=== PATIENT | female | born 1995 | race Caucasian/White ===

== ENCOUNTER 2016-07-08 15:32 | Inpatient (IN) | payer OTHER ==
[2016-07-08] VITALS (8 sets, daily range): BP systolic 112–130; BP diastolic 68–102; PULSE 60–98; RESP 16–23; O2SAT 95–99
[~2016-07-08] VITALS: Ht 160 cm; Wt 60.8 kg
[~2016-07-08 15:32] MED LIST: NORE1TAB63 PO
[2016-07-08] MEDS ORDERED: CeFAZolin Inj 2 GM in IV Premix 1 EACH IV ONE (15:55)
[2016-07-08] MEDS ORDERED: metroNIDAZOLE Inj 500 MG in IV Premix 1 EACH IV ONE (15:55)
[2016-07-08] MEDS ORDERED: Lactated Ringer's 1,000 ML IV ONE (16:02)
[2016-07-08] MEDS ORDERED: levoFLOXacin Inj 500 MG in IV Premix 1 EACH IV ONE (16:20)
[2016-07-08] MEDS ORDERED: metroNIDAZOLE 500 mg/100 mL NS Premix IV ONE (16:33)
[2016-07-08] MEDS ORDERED: levoFLOXacin 500 mg/100 mL D5W Premix IV ONE (16:33)
--- NOTE | 2016-07-08 16:33 | PCM.HPSURG ---
Subjective Date of Service: July 08, 2016 Referring Provider: Admitting Physician: Primary Care Physician: Maco Marin Attending Physician: Perry Moreira MD Chief Complaint appendicitis History of Present Illness Ms. Krishna is a 21-year-old female with no significant past medical or surgical history who was seen in urgent care yesterday and today secondary to right lower quadrant pain. This last Friday night (07/05/2016) patient had a sudden sharp onset of right lower quadrant pain reported to be 5 out of 10 which radiated to the left lower quadrant. This pain worsened over the next 3 days. She states it felt like someone was "twisting my colon". This was accompanied with nausea and vomiting, stating that approximately every 2 hours she would vomit until Friday where her vomiting would decrease to every 4 hours. She also states she had diarrhea Friday though does not report a bowel movement yesterday though she is still passing flatus and belching. She does not state fevers at home but states she has had some chills. States nothing like this is ever happened to her before there are no other sick contacts at home. She went to the urgent care yesterday and was told that she had a virus and was given Zofran with some relief, though she returned to urgent care today secondary to worsening of her abdominal pain. Blood work was obtained and showed a white count of 22,000. She also had a reported temperature of approximately 100F and CT imaging obtained was suggestive for acute appendicitis. Review of systems found to be negative except as above in the history of present illness. Allergy Allergies: Coded Allergies: Penicillins (Verified Allergy, Severe, Anaphylaxis, 07/08/16) Medications Home medications Active meds per [facility] med rec: Microgestin, contraceptive Ondansetron Levsin (hyoscyamine), anti-spasmatic Past Surgical History Operations: [place] teeth removal Social History Occupation: veterinary surgery technician Hx Alcohol Use: No Hx Substance Use: No Hx Tobacco Use: Yes (occasional) PMH Other History Diabetes: No Other History/Comments Patient local resident, works as a veterinary surgery technician. Currently gauged to peter also present during interview. No children. Her next general records past medical history includes right-sided sciatica, allergic conjunctivitis, sinusitis, contusion of coccyx, orthostatic lightheadedness Social History Hx Alcohol Use: NoHx Substance Use: NoHx Tobacco Use: Yes (occasional smoker) Family History Family History: Father hypertension and prediabetes, mother unknown, sister and brother alive and well H&P Surgical Exam Exam General: Alert, Oriented X3, Cooperative Neck: Full Range of Motion Lungs: Clear to Auscultation, Clear to Percussion, Normal Air Movement Heart: Exam Unremarkable, Regular Rate/Rhythm, No Murmurs/Rubs/Gallops Abdomen: Soft, Appropriately tender (right lower quadrant and suprapubic tenderness to palpation, no rebound tenderness) Diagnostics: . CT ABDOMEN AND PELVIS WITH CONTRAST IMPRESSION: 1. The CT findings are suspicious for acute appendicitis. Dictated by: Pascual Austin M.D. on 07/08/2016 at 14:53 Assessment & Plan Assessment Assessment & Plan: Acute Appendicitis - CT imaging shows distended appendix 9 mm in diameter. With increased enhancement and small amount of free fluid - WBC found to be 22,000 at urgent care -Temperature at urgent care 99.9, 36.6 preoperative - Patient scheduled for laparoscopic appendectomy today - Antibiotics given to date include: levofloxacin, metronidazole ceftezole - IV fluids, 1LR given to date VTE Prophylaxis: SCDs Resuscitation Status: CPR: Attempt Resuscitation Attending Statement: I personally interviewed and examined the pt, and I agree with Dr. Velazco's assessment and plan. To OR today. ILIANA VELAZCO DO July 08, 2016 16:33 Perry Moreira MD July 14, 2016 16:21
--- NOTE | 2016-07-08 18:19 | PCM.HPANE ---
Patient Data Surgeon Admitting Provider: Attending Provider:Perry Moreira MD Primary Care Physician:Maco Marin Other Provider:Radha Moraesingham Anesthesia Reason for Visit Appendicitis Ht/WT & BMI Height (Feet): 5 Height (Inches): 3 Weight (Kilograms): 57.3 Body Mass Index 22.00 Allergies Coded Allergies: Penicillins (Verified Allergy, Severe, Anaphylaxis, 07/08/16) Past Anesthesia History Anesthesia History: Denies:: Abnormal Airway, Anesthesia Reactions, Difficult Intubation, Fam Anesthesia Reaction, Fam Malignant Hypertherm, Malignant Hyperthermia Diabetes History Hx Diabetes?: No Medications Home Meds Incl Beta Kenneth: No Reported Medications Norethindrone A-E Estradiol (Microgestin)1 Each Tablet1 Each PO DAILY 08/18/14 History History of ENT Problems?: Yes HEENT History: Denies:: Abnormal Airway Cataracts Difficult Intubation Dysphagia Glaucoma Hearing Problem Sinus Problem TMJ Denture Type: None Teeth Condition: Within Normal Limits Other HEENT Pertinent History: history frequent ear infections Hx of Heart Problems?: Yes Cardiovascular History: Denies:: AICD Abdominal Aortic Aneurism Atrial Fibrillation Cardiac Surgery Chest Pain Congestive Heart Failure Coronary Artery Disease Edema Heart Murmur Hypertension Irregular Heartbeat Pacemaker Peripheral Vascular Rheumatic Fever Thrombophlebitis Valvular Heart Disease Other Cardiac History: says she was in hospital 2 years ago for palpitations Hx of Respiratory Problem?: No Respiratory History: Denies:: Asthma COPD Chest Surgery Cough Dyspnea Emphysema Hemoptysis Oxygen Administration Pneumonia Pulmonary Embolism Tuberculosis Use of C-PAP Machine Use of Inhalers / NEBS Hx Neurologic Problems?: No Hx of GI Problems?: No Hx of Problems?: No HX of Peritoneal Dialysis: No Skin History: Denies:: History Skin Disorders? Hx Musculoskeletal Problems?: No Hx of Psycho/Social Problems?: Yes Psycho Social History: Positive for:: Anxiety Hx Surgeries?: No Hx Any Other Health Problems?: No Hx Diabetes: No Occupation: marine services technician Hx Alcohol Use: Yes (occasional)Hx Substance Use: Yes (marijuana)Have You Smoked inLast 12 mo: No Stop/Bang S-Snoring: Do You Snore Loudly: No T-Tired: feel tired, fatigued: Yes O-Obsered: Observed not breath: No P-Blood Pressure: treated: No B- Body Mass Index > 35 kg/m2: No A- Age over 50: No N- Neck Large Circumference: No Risk Assessment Category Category 1A: Patient has history of documented sleep apnea, and HAS NOT received any narcotic, sedative or anesthesia administration during this stay. Category 1B: Patient has history of documented sleep apnea, and HAS received any narcotic , sedative or anesthesia administration during this stay Category 2: Patient has SUSPECTED Obstructive Sleep Apnea, and HAS received any narcotic , sedative or anesthesia administration during this stay. Category 3: Patient has SUSPECTED Obstructive Sleep Apnea and HAS NOT received narcotic, sedative or anesthesia administration during this stay. Category 4: Outpatient in Procedural Areas with known sleep apnea or who screen positive for High Risk via the STOP/BANG questionnaire. Exam Exam Vital Signs Vital Signs Date Time Temp Pulse Resp B/P Pulse Ox O2 Delivery O2 Flow Rate FiO2 07/08/16 16:06 36.6 93 16 114/74 99 Room Air General Appearance: Alert, Oriented X3, Cooperative, No Acute Distress HEENT/AIRWAY: MP 1 Lungs: Clear to Auscultation, Clear to Percussion, Normal Air Movement Heart: Exam Unremarkable, Regular Rate/Rhythm, No Murmurs/Rubs/Gallops Meds/Labs/Diagnostics Admission Meds Current Medications Lactated Ringer's (Lr) 1,000 ml @ ud STK-MED ONCE IV Last administered on 07/08t 16:02; Start 07/08/16 at 16:02; Stop 07/08/16 at 16:03; Status DC Plan Impression Patient chart reviewed, patient interviewed and anesthestic plan with risks, benefits, and alternatives discussed, and informed consent obtained. ASA Physical Status: ASA2 Mod Systemic Disease Anesthetic Plan: GA Bene/Risks/Altern/Consents: Yes HP Complete Prior to Induction: Yes Cuong Morgan MD July 08, 2016 18:19
[2016-07-08] MEDS ORDERED: Lactated Ringer's 1,000 ML IV SCH (18:34)
[2016-07-08] MEDS ORDERED: Lactated Ringer's 500 ML IV PRN (18:34)
[2016-07-08] MEDS ORDERED: Dexamethasone 4 mg/mL Inj IVPUSH PRN (18:35)
[2016-07-08] MEDS ORDERED: HYDROmorphone 1 mg/mL Inj IVPUSH PRN (18:35)
[2016-07-08] MEDS ORDERED: Ondansetron 2 mg/mL 2 mL Inj IVPUSH PRN (18:35)
[2016-07-08] MEDS ORDERED: MetoCLOpramide 5 mg/mL 2 mL Inj IVPUSH PRN (18:35)
[2016-07-08] MEDS ORDERED: Phenylephrine 10,000 mCg/mL Inj IVPUSH PRN (18:35)
[2016-07-08] MEDS ORDERED: EPHEDrine Sulfate 50 mg/mL Inj IVPUSH PRN (18:35)
[2016-07-08] MEDS ORDERED: Bupivacaine 0.5%/EPI 50 mL Inj INFILTRATE ONE (18:48)
[2016-07-08] MEDS ORDERED: Sodium Chloride LOK Flush 10 mL Syringe IVFLUSH PRN (19:15)
--- NOTE | 2016-07-08 19:32 | PCM.ANEP1 ---
Post Anesthesia Phase 1 PACU Phase 1 Assessment Date of Service: July 08, 2016 Vital Signs Vital Signs Date Time Temp Pulse Resp B/P Pulse Ox O2 Delivery O2 Flow Rate FiO2 07/08/16 16:06 36.6 93 16 114/74 99 Room Air Anesthetic Administered: GA Level of Alertness: Awake, talking ORTIZ's with Equal Strength: Yes Pain: No Nausea or Vomiting: No Oxygen Delivery: Room Air Lungs: Clear to Auscultation, Clear to Percussion, Normal Air Movement Dermatome Level: Full Sensation Complications: No Cuong Morgan MD July 08, 2016 19:32
[2016-07-08] MEDS ORDERED: Dexamethasone 4 mg/mL Inj ONE (19:52)
[2016-07-08] MEDS ORDERED: Propofol 10,000 mCg/mL 20 mL Inj ONE (19:52)
[2016-07-08] MEDS ORDERED: fentaNYL-PF 50 mCg/mL 2 mL Inj ONE (19:52)
[2016-07-08] MEDS ORDERED: Glycopyrrolate 0.2 MG/ML 1mL Inj ONE (19:52)
[2016-07-08] MEDS ORDERED: Succinylcholine Chloride 20 mg/mL 5 mL Inj ONE (19:52)
[2016-07-08] MEDS ORDERED: Phenylephrine/NS 100 mCg/mL 10 mL Syringe IVPUSH ONE (19:52)
[2016-07-08] MEDS ORDERED: Ondansetron 2 mg/mL 2 mL Inj ONE (19:52)
[2016-07-08] MEDS ORDERED: MetoCLOpramide 5 mg/mL 2 mL Inj ONE (19:52)
[2016-07-08] MEDS ORDERED: Neostigmine 1 mg/mL 10 mL Inj ONE (19:52)
[2016-07-08] MEDS ORDERED: Rocuronium 10 mg/mL 5 mL Inj ONE (19:52)
[2016-07-08] MEDS: fentaNYL-PF 50 mCg/mL 2 mL Inj IVPUSH PRN ×2 (20:14→20:17)
[2016-07-08] MEDS: HYDROmorphone 1 mg/mL Inj IVPUSH PRN (21:51)
[2016-07-08] MEDS: Ondansetron 2 mg/mL 2 mL Inj IVPUSH PRN (21:52)
[2016-07-09] MEDS: HYDROmorphone 1 mg/mL Inj IVPUSH PRN ×3 (00:35→18:16)
--- NOTE | 2016-07-09 00:38 | OP ---
[address] [address] OPERATIVE REPORT PATIENT: TSERING CHACKO : 1995 MR#: [id number] ADMIT: 07/08/2016 JOB ID: [id number] DATE OF SURGERY: 07/08/2016 SURGEON: Perry Moreira MD. ASH COLLECTOR: RAMIRO Becerra. ANESTHESIA: General. PREOPERATIVE DIAGNOSIS(ES): Acute appendicitis. POSTOPERATIVE DIAGNOSIS(ES): Perforated appendicitis. PRINCIPAL PROCEDURE: Laparoscopic appendectomy. INDICATION FOR PROCEDURE: The patient is a 21-year-old female with three days history of abdominal pain, an elevated white blood count and a CT scan that was suspicious for acute appendicitis. PRINCIPAL FINDING: The appendix had fibrinous exudate on it and it was completely encased and covered up by the retroperitoneum and the cecum. There was no gross purulence except for the localized inflammatory process just around the appendix. There was oozing of purulence from the appendix during the case. PROCEDURE COURSE: The patient was brought to the operating table and was provided with general anesthesia. The patient was given IV antibiotics and SCDs. A time-out was performed. The patient's abdomen was then prepped and draped in the usual sterile fashion. Next, local anesthetic was injected into the left upper quadrant location and a 5 mm stab incision was made. A Veress needle was used to establish pneumoperitoneum. Next, a 5 mm trocar was then placed and the laparoscope was introduced. A second 5 mm trocar was then placed in the left lateral abdomen and a 12 mm trocar was then placed in the left lower quadrant. The patient was tilted with left side down and head down. Inspection of the right lower quadrant shows that there was an indurated process just behind the cecum. I was able to medially rotate the cecum and I was able to find a walled-off inflammatory process surrounding the appendix. There was oozing of purulent material from the appendix itself during the case. There were fibrinous exudate on the appendix itself and also on the retroperitoneum. Next, a window was then made in the mesoappendix adjacent to the base of the appendix and using an endoscopic stapler the base of the appendix was then transected. The mesoappendix was also divided using the stapler. The specimen was then placed into the EndoCatch bag and removed from the patient. Copious irrigation of the right lower quadrant and of the staple line was carried out. Cautery was gently applied to the staple line to help with hemostasis. Irrigation of the right upper quadrant was carried out. Given the perforated nature of the appendicitis, a decision was placed to place a drain. A 19-Korean Yariel-Leiva drain was then introduced through the left lateral port and placed into the pelvis. It was secured to the skin using a nylon suture. Next, we turned our attention to the left lower quadrant trocar site. The fascial defect there was then reapproximated using 0 Vicryl suture using the Endo Close device. Next, CO2 was allowed to escape and all the trocars were then removed from the patient. The SHAYAN was connected to a bulb suction device. Steri-Strips and sterile dressing were then placed over each wound. By the end of procedure, needle counts and sponge counts were correct. The patient was then extubated and taken to the recovery room in stable satisfactory condition. The assistance from surgical PA or RAMIRO was critical in driving the camera and in completion of the case. NANCY
[2016-07-09 01:20] VITALS: BP 99/57; PULSE 63; RESP 16; O2SAT 97
[2016-07-09] MEDS: metroNIDAZOLE Inj 500 MG in IV Premix 1 EACH IV SCH ×3 (01:33→16:34)
[2016-07-09 05:50] LABS: Mean Corpuscular Volume 88.7 fL (81-100)
--- NOTE | 2016-07-09 06:06 | NUR ---
Transfer to unit Patient arrived to unit at 202907/08/16, able to transfer (scoot) self to bed from [facility]. Oriented to room, and call light. Patient c/o pain and nausea. Unable to scan wrist ban verbally verified patient and medications. Pharmacy notified. New wrist band brought up shortly after. Ambulates to bathroom with steady gait, voiding spontaneously. Tolerating clear liquid diet, no noted ASE to ABX. Will continue to monitor.
[2016-07-09 06:21] VITALS: BP 108/68; PULSE 63; RESP 16; O2SAT 99
--- NOTE | 2016-07-09 08:34 | PCM.PNSURG ---
Subjective Visit Information: Reason for Visit Appendicitis Surgery/Surgery Date LAP APPENDECTOMY 07/08/16 Post-Op Day # Date of Admission: July 08, 2016 at 19:51 Hospital Day # Subjective: no acute events overnight, feels better today, no n/v, operative findings explained to pt. Objective Objective Arousable in bed Abd: nondistended, less tender in RLQ than yesterday, SHAYAN --> serosang 20 cc Vital Sign- Last 8 Hours Date Time Temp Pulse Resp B/P Pulse Ox O2 Delivery O2 Flow Rate FiO2 07/09/16 06:21 36.3 63 16 108/68 99 Room Air 07/09/16 01:20 36.2 63 16 99/57 97 Room Air Intake and Output- Last 8 Hour 07/09/16 Cumulative From/Thru 07:00 07/08/16 16:06 - 07/09/16 06:31 Intake Total 392 ml 1442 ml Output Total 1470 ml 1470 ml Balance -1078 ml -28 ml Intake Oral 250 ml 250 ml IV Total 142 ml 1192 ml Output Urine Total 1450 ml 1450 ml Drainage Total 20 ml 20 ml # Bowel Movements 0 0 Result Diagram: 07/09/16 0448 Assessment & Plan Impression POD #1 s/p lap appy for perf appendicitis Doing well Problems: Plan Continue IV abx Will repeat CBC tomorrow Ambulate Incentive spirometer Advance diet as tolerated Continue SHAYAN for now, likely d/c SHAYAN prior to going home. VTE Prophylaxis: SCDs Resuscitation Status: CPR: Attempt Resuscitation Perry Moreira MD July 09, 2016 08:34
[2016-07-09] MEDS: HYDROcodone-APAP 5-325 mg Tablet PO PRN ×4 (08:57→21:25)
[2016-07-09] MEDS: levoFLOXacin Inj 500 MG in IV Premix 1 EACH IV SCH (09:57)
--- NOTE | 2016-07-09 10:34 | NUR ---
Social Work: Screening/Readiness for Discharge D: EMR reviewed. Pt is a 21 y/o female admitted for appendicitis pre H&P. SW met with pt to complete initial screening. Pt was alert and oriented x3. SW confirmed that pt has self-pay insurance. SW made T/C to Registration to determine in pt is covered by Medicaid at pt's request. Registration confirmed pt is ineligible/inactive for Medicaid. SW made referral to [facility] and provided pt with [facility] Application. Pt's PCP is Maco Marin MD. Pt's primary contact is her mother, Alana Krishna ([phone]). SW confirmed pt has not completed DPOA/advanced directive ppw. SW provided ppw at pt's request and encouraged pt to provide copy to the hospital when complete. Pt lives at home with her Fiance in [place]. SW does not anticipate any discharge needs at this time. Pt to transport home with her mother via POV at time of discharge. SW will continue to follow if needs arise. A: Pt who is independent at baseline. P: Pt to discharge home with mother via POV when medically stable. CASANDRA Quiroz
[2016-07-09 13:31] VITALS: BP 118/77; PULSE 57; RESP 16; O2SAT 98
[2016-07-09] MEDS: Ondansetron 2 mg/mL 2 mL Inj IVPUSH PRN ×2 (17:37→18:06)
--- NOTE | 2016-07-09 18:36 | NUR ---
Pain / Nausea Pain well controlled most of day with 2 tabs Vicodin Q4. This evening pt seems very nauseous and asks for Zofran. 8mg given with some relief. 0.5mg Dilaudid given IV to help with pain. Withheld PO medications worried they would make her more nauseous. Will recheck soon. Pt ambulating independently with steady gait. Care continues
[2016-07-09 20:33] VITALS: BP 115/75; PULSE 69; RESP 14; O2SAT 96
--- NOTE | 2016-07-09 20:55 | NUR ---
BM P: Patient has not had BM since 07/06 I: Encouraged ambulation and fluids. E: Patient able to do multiple laps around unit and patient stated that she has passed gas. S:Bed down and locked, call light in reach pt will call if needed.
[2016-07-09] MEDS: Senna-Docusate 8.6-50 mg Tablet PO PRN (22:29)
--- NOTE | 2016-07-09 23:20 | NUR ---
PAIN/ACTIVITY: Pt. reported post op pain, medicated with 2 [place]. Educated regarding constipation due to pain medication. Gave 2 Sennas and prune juice. Encouraged ambulation. Pt. has been ambulating around the hallway multiple times tonight. States she is starting to pass flatus during ambulation. BT are present throughout, no report of BM yet. Abdominal band aids are CDI. A & O, VSS, on going care.
[2016-07-10 00:09] VITALS: BP 118/71; PULSE 57; RESP 16; O2SAT 98
[2016-07-10] MEDS: Ondansetron 2 mg/mL 2 mL Inj IVPUSH PRN ×3 (00:31→16:33)
[2016-07-10] MEDS: metroNIDAZOLE Inj 500 MG in IV Premix 1 EACH IV SCH ×3 (00:34→16:33)
[2016-07-10] MEDS: HYDROcodone-APAP 5-325 mg Tablet PO PRN ×3 (02:23→14:28)
[2016-07-10 05:29] VITALS: BP 110/76; PULSE 67; RESP 18; O2SAT 99
[2016-07-10 06:08] LABS: BASOPHILS % (AUTO) 0.2 % (0-3); MONOCYTES % (AUTO) 8.3 % (4-12); Mean Corpuscular Hemoglobin 30.4 pg (27.0-35.0); Mean Corpuscular Volume 89.9 fL (81-100); NEUTROPHILS % (AUTO) 67.6 % (40-74); Platelet Count 262 bil/L (150-400)
[2016-07-10] MEDS: Senna-Docusate 8.6-50 mg Tablet PO PRN (08:35)
[2016-07-10] MEDS: levoFLOXacin Inj 500 MG in IV Premix 1 EACH IV SCH (09:57)
--- NOTE | 2016-07-10 10:22 | PCM.PNSURG ---
Subjective Date of Service: July 10, 2016 Date of Service: July 10, 2016 Visit Information: Reason for Visit Appendicitis Surgery/Surgery Date LAP APPENDECTOMY 07/08/16 Post-Op Day # 2 s/p lap appy Date of Admission: July 08, 2016 at 19:51 Hospital Day # Subjective: Patient seen on surgery floor. States that she feels better today but still notes some pain major at drain site. Denies f/c/cp/sob. Notes improved appetite today with decreased nausea and no vomiting. No BM but positive flatus. Postop General: No Shortness of Breath, No Chest Pain Gastrointestinal: Tolerating Oral Feedings, No N/V, Passing Flatus Pain Management: PO (Aurora, ), IV Push (dilaudid, morphine), Continued Pain Issues (slow improvement) Postop Activity: Ambulating Independently Objective Vital Sign- Last 8 Hours Date Time Temp Pulse Resp B/P Pulse Ox O2 Delivery O2 Flow Rate FiO2 07/10/16 05:29 36.7 67 18 110/76 99 Room Air Intake and Output- Last 8 Hour 07/10/16 Cumulative From/Thru 07:00 07/08/16 16:06 - 07/10/16 05:29 Intake Total 600 ml 3742 ml Output Total 950 ml 3740 ml Balance -350 ml 2 ml Intake Oral 600 ml 2250 ml IV Total 1492 ml Output Urine Total 950 ml 3700 ml Drainage Total 40 ml # Bowel Movements 0 0 General: Alert, Oriented X3 Neck: Supple Lungs: Clear to Auscultation Heart: Exam Unremarkable, Regular Rate/Rhythm Abdomen: Soft, Appropriately tender, Non-distended Catheters: None Result Diagram: 07/10/16 0535 Assessment & Plan Impression satisfactory post op course s/p lap appy for perforated appendicitis Problems: Plan Patient would like to remain in hospital a few hours to see if she feels like going home. Will likely d/c to home this pm. Will dc drain at that time. In the interim patient needs to ambulate and continue IS. Continue Senna. Pain Management: Continue norco and dilaudid for breakthrough. VTE Prophylaxis: SCDs Resuscitation Status: CPR: Attempt Resuscitation Qamar Bergman PA-C July 10, 2016 10:22
--- NOTE | 2016-07-10 10:32 | PCM.DISURG ---
Surgical Discharge Instruction Date of Service July 10, 2016 Dates of Hospitalization Date of Hospital Admission July 08, 2016 at 19:51 Providers Admitting Physician: Perry Moreira MD Primary Care Physician: Maco Marin Attending Physician: Perry Moreira MD Discharge Diagnosis Discharge Diagnosis Appendicitis Post Operative diagnosis Appendicitis Diet Discharge Diet: No restrictions Activity Discharge Activity-General: Balance rest and activity, No driving while taking narcotic Dressing and Incisional Care Dressing Care: Allow Steri Stripes to fall off, Remove outer dressing after 24 hrs Hygiene: May shower, DO NOT soak incision under water, NO bathtub, hot tub or whirlpool Follow Up Plan Follow Up Plan Follow up in general surgery PA clinic in 2-3 weeks. Check in with your primary care provider as well. Follow-up Provider (F9): Maco Marin Mid-level Provider (F9): Amira Angeles PAC Call your provider for: Fever, Chills, Increasing abdominal pain, Nausea, Wound redness, Increasing wound pain, Discharge @ incision, pus discharge Qamar Bergman PA-C July 10, 2016 10:32
[2016-07-10] MEDS ORDERED: HYDR-4003 PO (10:34)
[2016-07-10] MEDS ORDERED: METR500T19 PO (14:08)
[2016-07-10] MEDS ORDERED: LEVO500T16 PO (14:10)
[2016-07-10 14:18] VITALS: BP 113/69; PULSE 73; RESP 18; O2SAT 96
[2016-07-10] MEDS ORDERED: ONDA4TAB9 PO (14:22)
--- NOTE | 2016-07-10 15:10 | NUR ---
Social work-discharge: Data:EMR reviewed. Pt is on day 2 of hospitalization for appendicitis per H&P. Pt is medically stable to discharge home today. [facility] care application has been provided. Pt has been up ambulating independently. Pt's mother to provide transport home. No discharge needs identified. All updated and agreeable to plan. Assessment;Pt who is independent at baseline. Plan:Pt to discharge home today via POV. No discharge needs identified. All updated and agreeable to plan. CASANDRA Hunt
--- NOTE | 2016-07-10 16:15 | PATH ---
SURGICAL PATHOLOGY Attending Physician:Perry Moreira M.D. CASE STATUS: Signed Out PATIENT NAME: TSERING CHACKO PID: [id number] : 1995 DATE COLLECTED:07/08/2016 00:00 SPECIMEN: Appendix CLINICAL HISTORY: APPENDICITIS 1). APPENDIX FINAL DIAGNOSIS: Appendix, Laparoscopic Appendectomy: Acute and focally gangrenous appendicitis with serositis and para-appendiceal abscess. ICD10: K35.2 GROSS DESCRIPTION: The specimen is received in formalin, labeled with the patient's name, sublabeled as appendix, and consists of an intact appendix (length-5.1 cm, diameter-0.6 cm) with attached mesoappendix (up to 1.2 and cm in depth). The resection margin is received stapled. The serosa is vargas smooth and shiny and partially covered in vargas flaky friable exudate. The lumen contains dark red-black solid firm material. The wall is up to 0.2 cm thick. No nodules, masses or lesions are identified. Ink code: black-proximal. Section code: (A) appendix, underwriting sales representative. 07/09/16 ICD-9 CODES: CPT CODES: 1: 66283 Electronically Signed Out Edilia Goodman MD [facility] [address], [place] [address] Technical component performed at [facility], [facility] [address], [place], [address]
--- NOTE | 2016-07-10 18:52 | NUR ---
Discharge Patient left unit at 1845 ambulating independently with mom. All instructions regarding medications and dressing/incision care were given. Patient stated she understood instructions. All belongings with patient.
--- NOTE | 2016-07-12 13:53 | PCM.DC.SUR ---
Discharge Summary Date of Service: July 12, 2016 Date of Hospital Admission: July 08, 2016 at 19:51 Date of Operation(s): July 08, 2016 Date of Discharge: July 10, 2016 Diagnosis at Time of Discharge Appendicitis Problems: Operation Laparoscopic appendectomy Brief History and Physical: Ms. Krishna is a 21-year-old female with no significant past medical or surgical history who was seen in urgent care yesterday and today secondary to right lower quadrant pain. This last Friday night (07/05/2016) patient had a sudden sharp onset of right lower quadrant pain reported to be 5 out of 10 which radiated to the left lower quadrant. This pain worsened over the next 3 days. She states it felt like someone was "twisting my colon". This was accompanied with nausea and vomiting, stating that approximately every 2 hours she would vomit until Friday where her vomiting would decrease to every 4 hours. She also states she had diarrhea Friday though does not report a bowel movement yesterday though she is still passing flatus and belching. She does not state fevers at home but states she has had some chills. States nothing like this is ever happened to her before there are no other sick contacts at home. She went to the urgent care yesterday and was told that she had a virus and was given Zofran with some relief, though she returned to urgent care today secondary to worsening of her abdominal pain. Blood work was obtained and showed a white count of 22,000. She also had a reported temperature of approximately 100F and CT imaging obtained was suggestive for acute appendicitis. Review of systems found to be negative except as above in the history of present illness. Consultants: None Hospital Course: The patient was seen in the ED and found to have evidence of appendicitis. She was then taken to the operating room for a laparoscopic appendectomy. Please see operative notes for details of the operation. She tolerated the procedure well and was transferred to her hospital room where she remained for the balance of her hospital stay. A walled-off inflammatory process surrounding the appendix along with oozing of purulent material from the appendix itself was found along with fibrinous exudate on the appendix itself and also on the retroperitoneum. A abdominal drain was therefore placed and was removed on postoperative day #2. Antibiotics were started by IV in the hospital and converted to oral at time of discharge. On postoperative day number 2, the patient was found to have tolerable pain control, ambulating, passing flatus and tolerating a diet without nausea. She was then discharged to home in good condition. Pathology: CLINICAL HISTORY: APPENDICITIS 1). APPENDIX FINAL DIAGNOSIS: Appendix, Laparoscopic Appendectomy: Acute and focally gangrenous appendicitis with serositis and para-appendiceal abscess. Disposition: Home in good condition Follow-up Plan: Follow up in 2 weeks with general surgery [facility] Hydrocodone-Acetaminophen 5-325 mg (Hydrocodone-Acetaminophen 5-325 mg) 1 Each Tablet 1 TABLET PO Q4H PRN PRN For Pain Levofloxacin (Levaquin) 500 Mg Tablet 500 MG PO DAILY Metronidazole (Metronidazole) 500 Mg Tablet 500 MG PO TID Norethindrone A-E Estradiol (Microgestin) 1 Each Tablet 1 EACH PO DAILY ( Reported) Ondansetron ODT (Zofran ODT) 4 Mg Tablet 4 MG PO Q4H PRN PRN For Nausea copies to: Maco Marin Samuel L PA-C July 12, 2016 13:53
== END 2016-07-10 18:45 | disposition home or self-care (01) | DRG 340 ==
LOC: SAS 15:32 → OSC 19:51
PROVIDERS: ADMIT Surgery; ATTEND Surgery
PROC: 0DTJ4ZZ Resection of Appendix, Percutaneous Endoscopic Approach (ICD-10-PCS; principal; 2016-07-09)
DX: K35.2 Acute appendicitis with generalized peritonitis (principal); F17.200 Nicotine dependence, unspecified, uncomplicated

== ENCOUNTER 2016-07-08 15:53 | Day surgery (SDC) | payer OTHER ==
[2016-07-08] MEDS ORDERED: Lactated Ringer's 500 ML IV PRN (20:08)
[2016-07-08] MEDS ORDERED: Lactated Ringer's 1,000 ML IV SCH (20:08)
[2016-07-08] MEDS ORDERED: HYDROmorphone 1 mg/mL Inj IVPUSH PRN (20:10)
[2016-07-08] MEDS ORDERED: Dexamethasone 4 mg/mL Inj IVPUSH PRN (20:10)
[2016-07-08] MEDS ORDERED: fentaNYL-PF 50 mCg/mL 2 mL Inj IVPUSH PRN (20:10)
[2016-07-08] MEDS ORDERED: Ondansetron 2 mg/mL 2 mL Inj IVPUSH PRN (20:10)
[2016-07-08] MEDS ORDERED: MetoCLOpramide 5 mg/mL 2 mL Inj IVPUSH PRN (20:10)
== END 2016-07-08 23:59 | disposition home or self-care (01) ==
LOC: SAS 15:53
PROVIDERS: ATTEND Surgery
DX: K35.80 Unspecified acute appendicitis (principal)

== ENCOUNTER 2016-07-13 09:43 | Emergency (ER) | payer OTHER ==
[~2016-07-13 09:43] MED LIST changes: +HYDR-4003 PO; +LEVO500T16 PO; +METR500T19 PO; +ONDA4TAB9 PO
[2016-07-13 10:00] VITALS: BP 128/86; PULSE 63; RESP 14; O2SAT 95
--- NOTE | 2016-07-13 10:39 | ED.REPORT ---
HPI-Abd Pain F Under 40 Date of Service July 13, 2016 ED Provider: Jacques Calderon MD The patient is a 21 year old female who presents to the ED accompanied by a friend due to increasingly severe nausea for the past 3 days. The pt had an perforated appendectomy performed Friday night and was discharged Friday night on Metronidazole, Zofran, Levoflaxen, Vicodin and Tylenol. morning, she reports that she over exercised by walking around too much and didn 't get much sleep. She changed her bandage the same day and has since had a small amount of discharge coming from her wound. Associated symptoms include chills, lack of sleep, loss of appetite, and mid-abdominal pain. Since Friday, she has been increasingly nauseous but has not vomited. She has not measured a fever but has felt "overheated." Nursing Notes Stated Complaint: POST OP PAIN Chief Complaint: Female Abdominal Pain Nursing Notes Reviewed: Yes Allergies: Coded Allergies: Penicillins (Verified Allergy, Severe, Anaphylaxis, 07/08/16) Scheduled Levofloxacin (Levaquin) 500 Mg Tablet 500 MG PO DAILY Metronidazole (Metronidazole) 500 Mg Tablet 500 MG PO TID Norethindrone A-E Estradiol (Microgestin) 1 Each Tablet 1 EACH PO DAILY Scheduled PRN Hydrocodone-Acetaminophen 5-325 mg (Hydrocodone-Acetaminophen 5-325 mg) 1 Each Tablet 1 TABLET PO Q4H PRN PRN For Pain Ondansetron ODT (Zofran ODT) 4 Mg Tablet 4 MG PO Q4H PRN PRN For Nausea Ondansetron ODT (Zofran ODT) 4 Mg Tablet 4 MG PO Q4H PRN PRN For Nausea General Time Seen by MD: 10:04 Chief Complaint Nausea Hx Obtained From: Patient Arrived By: Walk-in Sudden in Onset?: Yes Symptom Duration: Since onset Progression since Onset: Gradually worsening Location: : Abdomen lower Quality: Painful Radiation: : Does not radiate Severity: Current: Mild Recent Healthcare: Recent doctor visit, Recent hospitalization, Previous surgery Similar Sx Previous: Yes Past Medical History Past Medical History none reported Past Surgical History Reports: Appendectomy Family History non-contributory Smoking History Never Smoker Social History Alcohol Use: "Social" Drug Use: Denies drug use Other Social History: Good social support, Local resident Occupation Works in farm Ambulatory Status Independent Review of Systems Review of Systems Note: Constitutional: Reports: Chills, Denies: Fever GI: Reports: Abdominal pain, Nausea, Denies: Vomiting Complete sys rev & neg: except as marked. Physical Exam Initial Vital Signs Vital Signs (First) Date Time Temp Pulse Resp B/P Pulse Ox O2 Delivery O2 Flow Rate FiO2 07/13/16 10:00 36.8 63 14 128/86 95 Room Air Initial VS: Reviewed Head / Eyes: Atraumatic, Normocephalic, PERRL ENT: Mucous membranes moist, Conjunctiva normal Neck: Supple, Non-tender Lymphatic: No lymphadenopathy Extremities: Vascular intact, Neuro intact, No swelling, No tenderness Skin: Warm, Dry Neurologic: Alert, Oriented General/Constitutional: Awake, Alert, Cooperative Respiratory / Chest: Atraumatic, Breath sounds NL, Breath sounds = bilat, No respiratory distress Cardiovascular: Heart rate NL, Regular rhythm, Heart sounds NL, No gallop, No murmurs, No rubs Abdomen: No guarding, No rebound diffuse tenderness incisions are intact no active drainage no surrounding erythema no fluctuance Back: Atraumatic, Inspection NL, Full range of motion, Painless range of motion Interpretation & Diagnostics Interpretation & Diagnostics: ABDOMINAL US IMPRESSION: Small fluid within the abdominal midline as above. This could represents moderate hematoma, phlegmon or seroma. Developing abscess cannot be definitively excluded on the basis of this examination. Dictated by: Dionne Valladares M.D. on 07/13/2016 at 11:21 Approved by: Dionne Valladares M.D. on 07/13/2016 at 11:[address] IMPRESSION: 1. No acute intra-abdominal or pelvic process. No abscess. Dictated by: Dionne Valladares M.D. on 07/13/2016 at 13:48 Approved by: Dionne Valladares M.D. on 07/13/2016 at 14:11 Lab Results Interpretation Result Diagram: 07/13/16 1055 07/13/16 1055 Test 07/13/16 10:55 07/13/16 11:15 White Blood Count 6.8th/mm3 (3.8-10.1) Red Blood Count 4.80mil/mm3 (3.90-5.20) Hemoglobin 14.4g/dL (12.0-15.6) Hematocrit 43.1% (35.0-46.0) Mean Corpuscular Volume 89.8fL (81-100) Mean Corpuscular Hemoglobin 30.0pg (27.0-35.0) Mean Corpuscular Hemoglobin Concent 33.4% (32.0-37.0) Red Cell Distribution Width 12.5% (12.3-15.4) Platelet Count 364bil/L (150-400) Neutrophils (%) (Auto) 68.4% (40-74) Lymphocytes (%) (Auto) 20.2% (14-46) Monocytes (%) (Auto) 8.7% (4-12) Eosinophils (%) (Auto) 1.9% (0-5) Basophils (%) (Auto) 0.7% (0-3) Hematology Comments Sodium Level 138mEq/L (134-144) Potassium Level 4.9mEq/L (3.5-5.2) Chloride Level 98mEq/L (97-108) Carbon Dioxide Level 28mmol/L (18-29) Blood Urea Nitrogen 12mg/dL (6-20) Creatinine 0.82mg/dL (0.57-1.00) Estimat Glomerular Filtration Rate 125mL/min (>59) Glucose Level 106mg/dL (60-99) Calcium Level 10.0mg/dL (8.5-10.1) Magnesium Level 1.7mg/dL (1.6-2.6) Total Bilirubin 0.3mg/dL (0.0-1.2) Aspartate Amino Transf (AST/SGOT) 75U/L (0-50) Alanine Aminotransferase (ALT/SGPT) 62U/L (0-32) Alkaline Phosphatase 46U/L (25-150) Total Protein 7.0g/dL (6.4-8.4) Albumin 4.3g/dL (3.4-5.0) Lipase 37U/L (13-60) Hold Golden Top Tube Received (Received) Hold Urine Received (Received) Re-Eval/Medical Decision Med Decision/Clinical Course Med Decision/Clinical Course: 21-year-old female history perforated appendix now 5 days status post surgery. Patient was discharged home on Levaquin and Flagyl. She presented with nausea and pain [address] shows no abscess. Her blood cell count is normal. General surgeon who performed the surgery saw the patient and recommended discharge home with discontinuing the Flagyl and continuing Levaquin. She will follow up with general surgeon next week. She will return sooner if she has worsening abdominal pain, nausea vomiting, discharge, fevers or any other new or worsening symptoms. Re-Evaluation/Progress : Time of Eval: 14:15 Patient Status: Condition improved Re-Evaluation/Progress Note: Pt rechecked. Informed pt of normal lab results and imaging and plan for discharge. F/U and RTER warnings given. Pt understands and agrees with plan. All questions addressed. Counseled Regarding: Diagnosis, Lab results, Need for follow-up, When/why to return to ED Discharge & Departure Primary Impression: Abdominal pain Abdominal location: unspecified location Qualified Code: R10.9 - Unspecified abdominal pain Disposition: Home Discharge Condition All VS Reviewed: Yes Condition: Stable Additional Instructions: I have talked with your surgeon and he agrees that you are okay to go home. Follow up with your surgeon and primary care provider next week. Do not hesitate to return to the Emergency Department for any new or worsening symptoms including increased abdominal pain, nausea, vomiting, diarrhea, fever, increased discharge, redness, or swelling. I hope you feel better soon, enjoy the sunshine! Referrals: Maco Marin (PCP) [employer] Attestation Portion of this note were transcribed by Darcy Funk. I, Dr. Calderon, personally performed the history, physical exam, and medical decision-making: I reviewed and confirmed the accuracy for the information in the transcribed note. Signed by: jayne Rasmussen, 07/13/16 1400 copies to: Maco Marin Ben M MD July 13, 2016 10:39 Darcy Funk July 13, 2016 11:17
[2016-07-13 11:19] LABS: BASOPHILS % (AUTO) 0.7 % (0-3); EOSINOPHILS % (AUTO) 1.9 % (0-5); MONOCYTES % (AUTO) 8.7 % (4-12); Mean Corpuscular Volume 89.8 fL (81-100); NEUTROPHILS % (AUTO) 68.4 % (40-74); Platelet Count 364 bil/L (150-400)
--- NOTE | 2016-07-13 11:25 | DRSVH ---
PROCEDURE: US ABDOMEN, LIMITED ([id number]) INDICATIONS: abd pain several days post perforated appendix TECHNIQUE: Real-time focused scanning was performed of the abdomen, with image documentation. COMPARISON: [facility], CT, CT ABD PELVIS W CON, 07/08/2016, 14:42. FINDINGS: Mild appearance of free fluid is present within the midline at the level of the umbilicus r egion. It measures approximately 10 mm AP by 20 mm transverse. IMPRESSION: Small fluid within the abdominal midline as above. This could represents moderate hematom a, phlegmon or seroma. Developing abscess cannot be definitively excluded on the basis of this examin ation. Dictated by: Dionne Valladares M.D. on 07/13/2016 at 11:21 Approved by: Dionne Valladares M.D. on 07/13/2016 at 11:23
[2016-07-13 11:51] LABS: Magnesium 1.7 mg/dL (1.6-2.6)
[2016-07-13] MEDS ORDERED: Iohexol 300 mg/mL 30 mL Inj PO ONE (11:55)
[2016-07-13] MEDS ORDERED: ONDA4TAB9 PO (14:00)
--- NOTE | 2016-07-13 14:12 | DRSVH ---
PROCEDURE: CT ABDOMEN AND PELVIS WITH CONTRAST ([id number]) INDICATIONS: abd pain s/p perfed appendicitis TECHNIQUE: After the administration of intravenous contrast, 5 mm thick sections acquired from the diaphragm to the symphysis. 5 mm coronal and sagittal reformats were acquired. For radiation dose reduction, the following was used: automated exposure control, adjustment of mA and/or kV according to patient siz e. COMPARISON: None. FINDINGS: Image quality: Excellent. ABDOMEN: Lung bases: Lung bases are clear. Heart size is normal. Solid organs: Liver is mildly enlarged with steatosis. The spleen is normal in size and enhancement. Gallbladder is unremarkable. Biliary system is non dilated. Pancreas enhances normally. No adren al nodules. Kidneys demonstrate normal size and enhancement, without hydronephrosis. Peritoneum and bowel: Bowel loops demonstrate normal wall thickness and caliber. No free fluid or a ir. Nodes and vessels: No retroperitoneal or mesenteric adenopathy by size criteria. Aorta and inferior vena cava are normal in size. Miscellaneous: No ventral hernias. PELVIS: Genitourinary: Bladder wall thickness is normal. Miscellaneous: No inguinal hernias or adenopathy. Bones: No suspicious bony lesions. No vertebral body compression fractures. IMPRESSION: 1. No acute intra-abdominal or pelvic process. No abscess. Dictated by: Dionne Valladares M.D. on 07/13/2016 at 13:48 Approved by: Dionne Valladares M.D. on 07/13/2016 at 14:11
[2016-07-13 14:39] VITALS: BP 111/68; PULSE 70; RESP 14; O2SAT 99
--- NOTE | 2016-07-13 14:52 | PROG NOTE ---
[address] [address] PROGRESS NOTE PATIENT: TSERING CHACKO : 1995 MR#: [id number] ADMIT: 07/13/2016 JOB ID: [id number] DATE: 07/13/2016 This patient returns to the emergency department today due to concerns of nausea, not being able to the eat and having some drainage from the left sided incision. She underwent a laparoscopic appendectomy by me on July 08 and was found to have perforated appendicitis. The patient was treated with IV antibiotics and was discharged on the when she had a normal white blood count. Over the past couple of days, she has been having increasing nausea. She is taking the Levaquin and Flagyl. Workup in the emergency department today showed a white blood count of 6.8, and a CT scan today shows no abscess. PHYSICAL EXAMINATION: The patient is on the emergency department [facility] in no acute distress. She is pleasant appearing. Temperature is 36.8, blood pressure 128/86, pulse is 63, respirations 14. She is in no distress. Head is normocephalic. Neck is supple. Heart is regular rate. Lungs are clear. Abdomen is soft and nondistended. All three left-sided incisions look clean. The left middle incision has no obvious drainage at this time and there is no erythema. The cephalad incision and the inferior incisions are still covered by Steri-Strips. ASSESSMENT: This is a 21-year-old female, status post laparoscopic appendectomy for perforated appendicitis on July 08 which is five days ago. Her nausea may be secondary to the medications that she is taking such as Flagyl. I have advised her to continue taking the Levaquin but stop the Flagyl. I also offered her hospitalization but she currently declines. She can take Tylenol or ibuprofen as needed for pain and try to avoid the narcotics. If her symptoms do not improve over the next two days then she is encouraged to return to the emergency department for another checkup.
== END 2016-07-13 14:40 | disposition home or self-care (01) ==
LOC: SED 09:43
DX: R10.84 Generalized abdominal pain (principal); R68.83 Chills (without fever); R63.0 Anorexia; Z72.820 Sleep deprivation; Z98.890 Other specified postprocedural states; Z88.0 Allergy status to penicillin
CPT/HCPCS: 36415; 74177; 76705; 80053; 81025; 83690; 83735; 85025; 99284; Q9967